=== PATIENT | female | born 1985 | race Caucasian/White ===

== ENCOUNTER 2016-08-06 21:48 | Emergency (ER) | payer MEDICARE | END 2016-08-07 01:35 | disposition home or self-care (01) | LOC: ER 21:48 | DX: J20.9 Acute bronchitis, unspecified (principal); R10.13 Epigastric pain; R05 Cough; R50.9 Fever, unspecified; M79.661 Pain in right lower leg; M79.662 Pain in left lower leg; F17.210 Nicotine dependence, cigarettes, uncomplicated; Z87.11 Personal history of peptic ulcer disease; Z87.19 Personal history of other diseases of the digestive system; Z88.2 Allergy status to sulfonamides; Z79.899 Other long term (current) drug therapy | CPT/HCPCS: 99282 ==